=== PATIENT | male | born 1965 | race Caucasian/White ===

== ENCOUNTER 2017-12-30 15:53 | Emergency (ER) | payer OTHER ==
[~2017-12-30] VITALS: Ht 182.9 cm; Wt 137.3 kg
[2017-12-30] MEDS ORDERED: LOSA50TA25 PO (16:14)
[2017-12-30] MEDS ORDERED: PROPARACAINE HCL 0.5% 15 ML OPHTHALMIC SOLUTION OU ONE (16:30)
[2017-12-30] MEDS ORDERED: FLUORESCEIN SODIUM 1 MG STRIP OU ONE (16:30)
[2017-12-30 17:36] VITALS: BP 156/93
[2017-12-30] MEDS ORDERED: ERYTHROMYCIN 0.5% 3.5 GM TUBE OPHTHALMIC OINTMENT OU ONE (17:45)
== END 2017-12-30 18:22 | disposition home or self-care (01) ==
LOC: EMS 15:55
DX: T63.791A Toxic effect of contact with other venomous plant, accidental (unintentional), initial encounter (principal); H10.213 Acute toxic conjunctivitis, bilateral; F17.210 Nicotine dependence, cigarettes, uncomplicated; F12.90 Cannabis use, unspecified, uncomplicated; Y92.89 Other specified places as the place of occurrence of the external cause
CPT/HCPCS: 99283; 99406